=== PATIENT | female | born 1965 | race Caucasian/White ===

== ENCOUNTER 2025-04-28 11:15 | Outpatient (CLI) | payer BC ==
[2025-04-28 12:34] LABS: #Basophils Less than 0.03 10x3/uL (0.0-0.2); #Eosinophils Less than 0.03 10x3/uL (0.0-0.7); #Monocytes 0.38 10x3/uL (0.11-0.59); #Neutrophils 3.78 10x3/uL (1.40-6.50); %Basophils 0.0 % (0.0-1.0); %Eosinophils 0.0 % (0.0-10.0); %Lymphocytes 22.8 % (21.0-51.0); %Monocytes 7.0 % (0.0-10.0); %Neutrophils 70.0 % (42.0-75.0); Hematocrit 39.5 % (36.0-47.0); Hemoglobin 12.6 g/dL (12.0-16.0); Mean Corpuscular Hemoglobin 28.4 pg (27.0-31.0); Mean Corpuscular Volume 89.2 fL (78.0-98.0); Platelet Count 214 10x3/uL (130-400); Red Blood Cell (RBC) Count 4.43 mill/uL (4.20-5.40); White Blood Cell (WBC) Count 5.40 10x3/uL (4.8-10.8)
[2025-04-28 12:48] LABS: INR-International Normal Ratio 1.0; PTT 31.2 sec (22.9-36.1); Prothrombin Time 13.6 sec (12.0-14.7)
[2025-04-28 12:52] LABS: Anion Gap 14 mmol/L (10-20); BUN (Urea Nitrogen) 11 mg/dL (9.8-20.1); Calc. Creatinine Clearance 0 mL/min (70-130); Calcium 9.4 mg/dL (7.8-10.44); Carbon Dioxide 23 mmol/L (22-29); Chloride 104 mmol/L (98-107); Glucose 97 mg/dL (70-105); Potassium 4.0 mmol/L (3.5-5.1); Sodium 137 mmol/L (136-145)
[2025-04-28 12:58] LABS: Bacteria/HPF 1+ HPF (None Seen); Glucose, Urine (Dipstick) Normal (Negative); Leukocyte Negative Leu/uL (Negative); Protein, Urine (Dipstick) Negative (Neg-Trace); RBC/HPF 0-3 HPF (0-3); Specific Gravity, Urine 1.018 (1.002-1.036); WBC/HPF 0-3 HPF (0-3)
== END 2025-04-28 11:16 | disposition home or self-care (01) ==
LOC: LABBT 11:15
PROVIDERS: ATTEND Urology
DX: Z01.818 Encounter for other preprocedural examination (principal)
CPT/HCPCS: 80048; 81001; 85025; 85610; 85730; 87086; 93005; 93010

== ENCOUNTER 2025-06-13 13:33 | Outpatient (CLI) | payer BC, MEDICARE ==
[2025-06-13 14:23] LABS: #Basophils Less than 0.03 10x3/uL (0.0-0.2); #Eosinophils Less than 0.03 10x3/uL (0.0-0.7); #Monocytes 0.34 10x3/uL (0.11-0.59); #Neutrophils 2.74 10x3/uL (1.40-6.50); %Basophils 0.0 % (0.0-1.0); %Eosinophils 0.0 % (0.0-10.0); %Lymphocytes 26.1 % (21.0-51.0); %Monocytes 8.1 % (0.0-10.0); %Neutrophils 65.6 % (42.0-75.0); Hematocrit 40.4 % (36.0-47.0); Hemoglobin 12.6 g/dL (12.0-16.0); Mean Corpuscular Hemoglobin 28.3 pg (27.0-31.0); Mean Corpuscular Volume 90.6 fL (78.0-98.0); Platelet Count 200 10x3/uL (130-400); Red Blood Cell (RBC) Count 4.46 mill/uL (4.20-5.40); White Blood Cell (WBC) Count 4.18 10x3/uL (4.8-10.8)
[2025-06-13 14:30] LABS: Bacteria/HPF None Seen HPF (None Seen); Glucose, Urine (Dipstick) Normal (Negative); Leukocyte Negative Leu/uL (Negative); Protein, Urine (Dipstick) Negative (Neg-Trace); RBC/HPF 0-3 HPF (0-3); Specific Gravity, Urine 1.030 (1.002-1.036); WBC/HPF 0-3 HPF (0-3)
[2025-06-13 14:42] LABS: Anion Gap 13 mmol/L (10-20); BUN (Urea Nitrogen) 15 mg/dL (9.8-20.1); Calc. Creatinine Clearance 0 mL/min (70-130); Calcium 9.4 mg/dL (7.8-10.44); Carbon Dioxide 28 mmol/L (22-29); Chloride 104 mmol/L (98-107); Glucose 104 mg/dL (70-105); Potassium 4.0 mmol/L (3.5-5.1); Sodium 141 mmol/L (136-145)
[2025-06-13 14:43] LABS: INR-International Normal Ratio 1.0; PTT 31.0 sec (22.9-36.1); Prothrombin Time 13.4 sec (12.0-14.7)
== END 2025-06-13 13:34 | disposition home or self-care (01) ==
LOC: LABBT 13:33
PROVIDERS: ATTEND Orthopaedic Surgery
DX: Z01.812 Encounter for preprocedural laboratory examination (principal); N32.81 Overactive bladder
CPT/HCPCS: 80048; 81001; 85025; 85610; 85730; 87086